=== PATIENT | male | born 1955 | race Caucasian/White ===

== ENCOUNTER 2019-06-03 07:00 | Emergency (ER) | payer BC, OTHER ==
[2019-06-03 07:19] VITALS: BP 121/75
--- NOTE | 2019-06-03 07:41 | ED ---
GI/ HPI - HPI Summary HPI Summary: 63 yr old male with the complaint of upset stomach and diarrhea. Onset about 48 hours ago. He ate out on Monday, and he feels he was exposed through eating chicken. He denies fever, chills. Denies black stool. Denies having abdominal pain. Denies dizziness. He has been having about 8 watery brown stools per day. He has not been on antibiotics in the past month. Denies other GI issues. 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 Pain Intensity: 0 - Allergy/Home Medications Allergies/Adverse Reactions: Allergies Allergy/AdvReac Type Severity Reaction Status Date / Time No Known Allergies Allergy Verified 06/03/19 07:13 PMH/Surg Hx/FS Hx/Imm Hx Previously Healthy: Yes Respiratory History: Reports: Hx Asthma - as young child only - Surgical History Surgery Procedure, Year, and Place: RIGHT KNEE ARTHOSCOPY 2016 Infectious Disease History: No Infectious Disease History: Denies: Traveled Outside the [place] in Last 30 Days - Family History Known Family History: Positive: None, Cardiac Disease - father heart disease, had a pacemaker., Other - mother with many msk complaints but living age 81 - Social History Occupation: Employed Full-time Lives: With Family Alcohol Use: Occasionally Substance Use Type: Reports: None Smoking Status (MU): Never Smoked Tobacco Review of Systems Constitutional: Negative Positive: Diarrhea All Other Systems Reviewed And Are Negative: Yes Physical Exam Triage Information Reviewed: Yes Vital Signs On Initial Exam: Initial Vitals Temp Pulse Resp BP Pulse Ox 98.3 F 68 16 121/75 97 06/03/19 07:13 06/03/19 07:13 06/03/19 07:13 06/03/19 07:13 06/03/19 07:13 Vital Signs Reviewed: Yes Appearance: Positive: Well-Appearing, No Pain Distress Skin: Positive: Warm, Skin Color Reflects Adequate Perfusion Head/Face: Positive: Normal Head/Face Inspection Eyes: Positive: EOMI ENT: Positive: Normal ENT inspection Neck: Positive: Nontender Respiratory/Lung Sounds: Positive: Clear to Auscultation, Breath Sounds Present Cardiovascular: Positive: RRR. Negative: Murmur Abdomen Description: Positive: Nontender, No Organomegaly. Negative: Distended Musculoskeletal: Positive: Strength/ROM Intact Neurological: Positive: Sensory/Motor Intact, Alert, Oriented to Person Place, Time, CN Intact II-III Psychiatric: Positive: Normal - [place] Coma Scale Best Eye Response: 4 - Spontaneous Best Motor Response: 6 - Obeys Commands Best Verbal Response: 5 - Oriented Coma Scale Total: 15 Diagnostics - Vital Signs Vital Signs Temp Pulse Resp BP Pulse Ox 06/03/19 07:13 98.3 F 68 16 121/75 97 - Laboratory Lab Statement: Any lab studies that have been ordered have been reviewed, and results considered in the medical decision making process. GIGU Course/Dx - Course Course Of Treatment: 63 yr old with 48 hours of watery brown diarrhea multiple episodes after eating out. He is non toxic. He requests antibiotic coverage. Cipro for three days prescribed. FU with PMD. - Diagnoses Provider Diagnoses: Diarrhea Discharge ED - Sign-Out/Discharge Documenting (check all that apply): Patient Departure All imaging exams completed and their final reports reviewed: No Studies - Discharge Plan Condition: Good Disposition: HOME Prescriptions: Ciprofloxacin TAB* [Cipro 500 MG TAB*] 500 mg PO BID #6 tab Patient Education Materials: Acute Diarrhea (ED) Referrals: Jonathan Cobb MD [Primary Care Provider] - 2 Days - Billing Disposition and Condition Condition: GOOD Disposition: Home
== END 2019-06-03 07:44 | disposition home or self-care (01) ==
LOC: UCCORT 07:00
DX: R19.7 Diarrhea, unspecified (principal); Z96.651 Presence of right artificial knee joint
CPT/HCPCS: 99212; G0463